=== PATIENT | female | born 1965 | race Caucasian/White ===

== ENCOUNTER 2024-11-13 08:09 | Emergency (ER) | payer OTHER, SELFPAY ==
--- NOTE | 2024-11-13 08:13 | ED_ITS ---
HPI - Female Genitourinary General Chief complaint: Urogenital-Female Stated complaint: Uti Time Seen by Provider: 11/13/24 08:11 Source: patient Mode of arrival: ambulatory Limitations: no limitations History of Present Illness HPI Narrative: Alondra is a 59-year-old female patient presenting to the clinic today with complaints of a possible urinary tract infection. She reports she developed burning, pressure over the bladder and urinary frequency that started around 2:00 a.m. this morning. Denies any fevers, chills, body aches, abdomen pain, or back pain. No vaginal discharge or odor. Related Data Home Medications ?Medication ?Instructions ?Recorded ?Confirmed ?Last Taken ?Type lamotrigine 100 mg tablet mg 11/13/24 Unknown History lamotrigine 200 mg tablet mg 11/13/24 Unknown History levetiracetam 500 mg tablet mg PO 11/13/24 Unknown History lorazepam 0.5 mg tablet mg 11/13/24 Unknown History Allergies Allergy/AdvReac Type Severity Reaction Status Date / Time No Known Allergies Allergy Verified 11/13/24 08:18 Review of Systems Review of Systems: Pertinent positives per HPI. Patient denies any fever, chills, rash, headache, visual changes, dizziness, cough, runny nose, sore throat, shortness of breath, chest pain, palpitations, nausea, vomiting, diarrhea, constipation, abdominal pain. PMFSH Comments At the time of my signature, I reviewed and agree with the nursing past medical, surgical, social, and family history. There is no relevant family history pertinent to the patient complaint. Exam Narrative: General: Well-developed, well nourished, in no apparent distress. Head: Normocephalic, atraumatic. Cardio: Regular rate and rhythm, s1 and s2 normal, no murmur appreciated. Resp: Clear to auscultation bilaterally, no rhonchi, rales, wheezing or rubs. Abdomen: Soft, pliable, bowel sounds present in all quadrants, suprapubic tender to palpation, no organomegly, no CVAT tenderness. Course Course Emergency Course: Portions of this record may have been created with voice recognition software. Level of Care: Express Care Visit Vital Signs Vital signs: Vital Signs Temperature 36.8 C 11/13/24 08:23 Pulse Rate 99 11/13/24 08:23 Respiratory Rate 16 11/13/24 08:23 Blood Pressure 143/94 H 11/13/24 08:23 Pulse Oximetry 99 11/13/24 08:23 Temperature 36.8 C 11/13/24 08:23 Pulse Rate 99 11/13/24 08:23 Respiratory Rate 16 11/13/24 08:23 Blood Pressure 143/94 H 11/13/24 08:23 Pulse Oximetry 99 11/13/24 08:23 Vital signs reviewed MDM - Female Genitourinary MDM Narrative Medical decision making narrative: At the time of visit patient is resting comfortably on the exam table. Patient appears to be nontoxic. Labs: Urinalysis was performed and is positive for leukocytes, protein, and blood. We will send urine for culture. Plan: I suspect patient has urinary tract infection. Prescription for Bactrim was sent to the pharmacy. Supportive measures were discussed with the patient and they voiced understanding discharge instructions and agrees to treatment plan. Return precautions reviewed Differential Diagnosis Differential diagnosis: Likely urinary tract infection and cystitis Lab Data Labs: Lab Results 11/13/24 Range/Units 08:29 POC Urine Color Pending POC Urine Clarity Pending POC Urine pH Pending POC Ur Specif [place] Pending POC Urine Protein Pending POC Ur Glucose (UA) Pending POC Urine Ketones Pending POC Urine Blood Pending POC Urine Nitrite Pending POC Urine Bilirubin Pending POC Urine Urobilinogen Pending POC U Leukocyte Esteras Pending Discharge Plan Discharge Clinical Impression: Urinary tract infection Qualifiers: Urinary tract infection type: acute cystitis Hematuria presence: with hematuria Qualified Code(s): N30.01 - Acute cystitis with hematuria Patient Disposition: Home, Self-Care Condition: Stable Instructions: Antibiotic Form, Urinary Tract Infection in Women (ED) Additional Instructions: Urinalysis positive for leukocytes, protein, and blood. We will send urine for culture Take Bactrim as prescribed Continue current medications Increase fluids and stay well hydrated Wipe front to back. May use wet wipes. Avoid tub baths If sexually active- pee before and after intercourse. Wear cotton panties Avoid tight clothing up against the genitals Follow up with your PCP in 1 week if symptoms persist. Patient Language: [place] Prescriptions: New sulfamethoxazole-trimethoprim [Bactrim DS] 800-160 mg tablet 1 tablet PO Q12H 5 Days Qty: 10 0RF No Action lamotrigine 200 mg tablet levetiracetam 500 mg tablet PO lorazepam 0.5 mg tablet lamotrigine 100 mg tablet Follow-up/Referrals: UNKNOWN,DOCTOR [Primary Care Provider] - Time of Disposition: 08:32 Quality NIHSS Nursing Documentation ED NIHSS nursing documentation: reviewed/agree
[2024-11-13 08:23] VITALS: BP 143/94; PULSE 99; RESP 16; TEMP 36.8; O2SAT 99
[2024-11-13 08:32] LABS: EDUAAPPEAR Cloudy; EDUABILI Negative (Negative); EDUABLOOD 1+ (Negative); EDUACOLOR1 Light/Pale; EDUAGLUCOSE Negative (Negative); EDUAKETONE Negative (Negative); EDUALEUKO 3+ (Negative); EDUANITRATE Negative (Negative); EDUAPH 7.5; EDUAPROTEIN Trace (Negative); EDUASPGRAVITY 1.015; EDUAUROBILI 0.2
== END 2024-11-13 08:35 | disposition home or self-care (01) ==
PROVIDERS: Emergency Provider Nurse Practitioner Family
DX: N30.01 Acute cystitis with hematuria (principal); B96.20 Unspecified Escherichia coli [E. coli] as the cause of diseases classified elsewhere; Z85.3 Personal history of malignant neoplasm of breast; Z90.10 Acquired absence of unspecified breast and nipple
CPT/HCPCS: 81003; 87077; 87086; 87186; 99203; G0463